=== PATIENT | female | born 1965 | race Hispanic/Latino ===

== ENCOUNTER 2018-09-28 03:30 | Observation (INO) | payer BC ==
[~2018-09-28] VITALS: Ht 160 cm; Wt 108.9 kg
[2018-09-28] VITALS (13 sets, daily range): BP systolic 116–146; BP diastolic 64–83
[2018-09-28] MEDS ORDERED: metformin (04:15)
[2018-09-28] MEDS ORDERED: ACETAMINOPHEN 325 MG TAB PO PRN (04:15)
[2018-09-28] MEDS ORDERED: singulair (04:15)
[2018-09-28] MEDS ORDERED: lipitor PO (04:15)
[2018-09-28] MEDS ORDERED: ASPI-1005 PO (04:15)
[2018-09-28] MEDS ORDERED: amlodipine PO (04:15)
[2018-09-28] MEDS ORDERED: MORPHINE SULFATE 2 MG/ML 1ML SYG IV PRN (04:15)
[2018-09-28] MEDS ORDERED: invokana PO (04:15)
[2018-09-28] MEDS ORDERED: ONDANSETRON HCL MDV 20ML 2 MG/ML VIAL IV PRN (04:15)
[2018-09-28] MEDS ORDERED: LORAZEPAM 2 MG/ML 1 ML VIAL IVP PRN (04:15)
[2018-09-28] MEDS ORDERED: benazepril PO (04:15)
[2018-09-28 05:16] LABS: BASOPHILS % (AUTO) 0.6 % (0.0-5.0); EOSINOPHILS % (AUTO) 2.3 % (0.0-8.0); HEMATOCRIT 39.7 % (36-48); LYMPHOCYTES % (AUTO) 28.6 % (21.0-51.0); MEAN CORPUSCULAR HEMOGLOBIN 24.9 pg (27.0-33.0); MEAN CORPUSCULAR HGB CONC 32.8 g/dL (32.0-36.0); MEAN CORPUSCULAR VOLUME 75.7 fL (79-99); MONOCYTES % (AUTO) 6.9 % (3.0-13.0); NEUTROPHILS % (AUTO) 61.6 % (40.0-77.0); PLATELET COUNT (AUTO) 304 K/uL (130-400); RED BLOOD CELL COUNT(AUTO) 5.24 MIL/uL (4.00-5.50); RED CELL DISTRIBUTION WIDTH 15.9 % (11.0-15.5); WHITE BLOOD COUNT (AUTO) 12.6 K/uL (4.8-10.8)
[2018-09-28 05:32] LABS: HEMOGLOBIN A1C 7.4 % (4.0-6.0)
[2018-09-28 05:34] LABS: INR 0.98 (0.85-1.15); PROTHROMBIN TIME 10.3 SEC (9.6-11.6)
[2018-09-28 05:39] LABS: ALBUMIN 3.1 g/dL (3.5-5.0); BILIRUBIN,TOTAL 0.3 mg/dL (0.2-1.0); CREATININE 0.9 mg/dL (0.5-1.5); CRP QUANTITATIVE 23.7 mg/L (0.00-9.0); MAGNESIUM 2.2 mg/dL (1.80-2.40); THYROID STIMULATING HORMONE 2.33 uIU/mL (0.36-3.74); TOTAL PROTEIN, SERUM 7.2 g/dL (6.0-8.3)
[2018-09-28 05:50] LABS: B-TYPE NATRIURETIC PEPTIDE 78 pg/mL (0-100)
[2018-09-28] MEDS: NITROGLYCERIN 1GM/1 INCH PACKET TD SCH ×2 (06:43→11:51)
[2018-09-28] MEDS: INSULIN HUMULIN R 100 UNIT/ML 3ML SQ SCH ×4 (07:20→20:39)
[2018-09-28 07:53] LABS: TROPONIN I 1.56 ng/mL (0.00-0.06)
[2018-09-28] MEDS ORDERED: ASPIRIN 325 MG TABLET PO SCH (09:00)
[2018-09-28] MEDS: FAMOTIDINE/PF 20 MG/2 ML VIAL IV SCH ×2 (09:08→20:25)
[2018-09-28] MEDS: ATORVASTATIN CALCIUM 20 MG TABLET PO SCH (09:08)
[2018-09-28] MEDS: METOPROLOL TARTRATE 25 MG TAB PO SCH ×2 (09:08→20:25)
[2018-09-28] MEDS: ENOXAPARIN SODIUM 120 MG/0.8ML SQ SCH ×2 (09:10→20:26)
[2018-09-28] MEDS ORDERED: BIVALIRUDIN 250 MG/VIAL IV ONE (12:36)
[2018-09-28] MEDS ORDERED: LIDOCAINE HCL-MPF 2% 5ML VIAL ONE (12:36)
[2018-09-28] MEDS ORDERED: IOHEXOL-350 50ML VIAL IV ONE (12:36)
[2018-09-28] MEDS ORDERED: NITROGLYCERIN 5 MG/ML 10 ML VIAL IV ONE (12:36)
[2018-09-28] MEDS ORDERED: IOHEXOL 350 MG/ML 100ML INFUS..BTL IV ONE (12:36)
[2018-09-28] MEDS ORDERED: TICAGRELOR 90 MG TABLET ONE (13:47)
[2018-09-28] MEDS ORDERED: TEMAZEPAM 30 MG CAP PO PRN (14:15)
[2018-09-28] MEDS ORDERED: ACETAMINOPHEN-CODEINE 300/30MG TAB PO PRN ×2 (14:15)
[2018-09-28] MEDS ORDERED: MORPHINE SULFATE 5 MG/ML VIAL IVP SCH ×2 (14:15)
[2018-09-28] MEDS ORDERED: HYDRALAZINE HCL 20 MG/ML VIAL IV PRN (14:15)
[2018-09-28] MEDS ORDERED: NITROGLYCERIN 0.4 MG SL TAB SL PRN (14:15)
[2018-09-28] MEDS ORDERED: ONDANSETRON HCL 4 MG/2 ML VIAL IVP PRN (14:15)
[2018-09-28] MEDS ORDERED: ONDANSETRON HCL 4 MG/2 ML VIAL IVP SCH (14:15)
[2018-09-28 15:20] LABS: TROPONIN I 1.44 ng/mL (0.00-0.06)
[2018-09-28] MEDS: LISINOPRIL 10 MG TABLET PO SCH (20:25)
[2018-09-28] MEDS: TICAGRELOR 90 MG TABLET PO SCH (20:25)
[2018-09-29] LABS: TROPONIN I 1.21 ng/mL (0.00-0.06)
[2018-09-29 04:09] VITALS: BP 119/72
[2018-09-29 04:21] LABS: HEMATOCRIT 42.5 % (36-48); MEAN CORPUSCULAR HGB CONC 32.7 g/dL (32.0-36.0); MEAN CORPUSCULAR VOLUME 76.2 fL (79-99); NUCLEATED RED BLOOD CELLS 0.1 % (0.0-0.19); PLATELET COUNT (AUTO) 339 K/uL (130-400); RED BLOOD CELL COUNT(AUTO) 5.58 MIL/uL (4.00-5.50); RED CELL DISTRIBUTION WIDTH 16.1 % (11.0-15.5); WHITE BLOOD COUNT (AUTO) 13.2 K/uL (4.8-10.8)
[2018-09-29 05:09] LABS: CREATININE 0.9 mg/dL (0.5-1.5); POTASSIUM 4.3 mmol/L (3.5-5.1)
[2018-09-29] MEDS: INSULIN HUMULIN R 100 UNIT/ML 3ML SQ SCH ×2 (06:23→11:30)
[2018-09-29 07:47] VITALS: BP 151/84
[2018-09-29] MEDS ORDERED: ASPIRIN 81MG TAB.CHEW PO SCH (09:00)
[2018-09-29] MEDS: FAMOTIDINE/PF 20 MG/2 ML VIAL IV SCH (09:01)
[2018-09-29] MEDS: TICAGRELOR 90 MG TABLET PO SCH (09:01)
[2018-09-29] MEDS: LISINOPRIL 10 MG TABLET PO SCH (09:02)
[2018-09-29] MEDS: METOPROLOL TARTRATE 25 MG TAB PO SCH (09:02)
[2018-09-29] MEDS: ENOXAPARIN SODIUM 120 MG/0.8ML SQ SCH (09:03)
[2018-09-29] MEDS: ATORVASTATIN CALCIUM 20 MG TABLET PO SCH (09:05)
[2018-09-29] MEDS ORDERED: PNEUMOCOCCAL VACCINE POLYVALENT 0.5 ML/VIAL [PPV] IM SCH (10:30)
[2018-09-29] MEDS ORDERED: ATOR20TA65 PO (10:58)
[2018-09-29] MEDS ORDERED: METO25 PO (10:58)
[2018-09-29] MEDS ORDERED: TICA90TA PO (10:58)
[2018-09-29] MEDS ORDERED: LISI10TA7 PO (10:58)
[2018-09-29 11:04] VITALS: BP 120/77
== END 2018-09-29 14:12 | disposition home or self-care (01) ==
LOC: 2AH 03:31
PROVIDERS: ADMIT Hospitalist; ATTEND Hospitalist
DX: I25.110 Atherosclerotic heart disease of native coronary artery with unstable angina pectoris (principal); E11.9 Type 2 diabetes mellitus without complications; E78.2 Mixed hyperlipidemia; I11.0 Hypertensive heart disease with heart failure; I50.33 Acute on chronic diastolic (congestive) heart failure; E66.01 Morbid (severe) obesity due to excess calories; I21.4 Non-ST elevation (NSTEMI) myocardial infarction; J45.909 Unspecified asthma, uncomplicated; K21.9 Gastro-esophageal reflux disease without esophagitis; Z82.49 Family history of ischemic heart disease and other diseases of the circulatory system; Z95.5 Presence of coronary angioplasty implant and graft; Z79.899 Other long term (current) drug therapy; Z23 Encounter for immunization
CPT/HCPCS: 36415 ×2; 71045; 80048; 80053; 80061 ×2; 82550 ×3; 82948 ×6; 83036; 83690; 83735; 83874 ×3; 83880; 84443; 84484 ×4; 85025; 85027; 85610; 85730; 86140; 90471; 90732; 93005 ×3; 93306; 93458; 96372 ×2; 96374; 96376; 99285; A4600; C1725; C1769; C1874; C1887; C1894 ×2; C9600; G0378 ×36; J0583; J1644; J1650 ×3; J2060; J3490 ×5; Q9965; Q9967 ×2

== ENCOUNTER → 2018-12-01 | Outpatient (CLI) | payer BC ==
[~2018-12-01] MED LIST: ASPI-1005 PO; ATOR20TA65 PO; LISI10TA7 PO; METO25 PO; TICA90TA PO; amlodipine PO; benazepril PO; invokana PO; metformin; singulair
== END | disposition home or self-care (01) ==
LOC: SHCH 09:33
PROVIDERS: ATTEND Internal Medicine Cardiovascular Disease
DX: I65.23 Occlusion and stenosis of bilateral carotid arteries (principal)
CPT/HCPCS: 93880

== ENCOUNTER → 2023-02-05 | Outpatient (CLI) | payer BC ==
[~2023-02-05] MED LIST changes: +LISI10TA24 PO; -LISI10TA7 PO
== END | disposition home or self-care (01) ==
LOC: SHCH 14:32
PROVIDERS: ATTEND Internal Medicine Cardiovascular Disease
DX: I11.9 Hypertensive heart disease without heart failure (principal); I20.9 Angina pectoris, unspecified; E78.5 Hyperlipidemia, unspecified
CPT/HCPCS: 93306

== ENCOUNTER 2023-05-23 18:23 | Inpatient (IN) | payer BC, OTHER ==
[~2023-05-23] VITALS: Ht 160 cm; Wt 113.4 kg
[2023-05-23] MEDS ORDERED: LEVOFLOXACIN 750 MG/D5W 150ML BAG IV ONE (19:00)
[2023-05-23] MEDS ORDERED: 0.9%NACL 1000ML 1,503 ML IV ONE (19:00)
[2023-05-23] MEDS ORDERED: ACETAMINOPHEN 500 MG TABLET PO ONE (19:30)
[2023-05-23 19:41] LABS: BASOPHILS % (AUTO) 0.1 % (0.0-5.0); HEMATOCRIT 40.8 % (36-48); LYMPHOCYTES % (AUTO) 5.6 % (21.0-51.0); MEAN CORPUSCULAR HEMOGLOBIN 25.3 pg (27.0-33.0); MEAN CORPUSCULAR HGB CONC 32.8 g/dL (32.0-36.0); MEAN CORPUSCULAR VOLUME 77.1 fL (79-99); MONOCYTES % (AUTO) 8.5 % (3.0-13.0); NEUTROPHILS % (AUTO) 85.3 % (40.0-77.0); PLATELET COUNT (AUTO) 352 K/uL (130-400); RED BLOOD CELL COUNT(AUTO) 5.29 MIL/uL (4.00-5.50); RED CELL DISTRIBUTION WIDTH 16.1 % (11.0-15.5); WHITE BLOOD COUNT (AUTO) 13.8 K/uL (4.8-10.8)
[2023-05-23 19:59] LABS: ALBUMIN 2.9 g/dL (3.5-5.0); POTASSIUM 3.9 mmol/L (3.5-5.1); TOTAL PROTEIN, SERUM 8.6 g/dL (6.0-8.3)
[2023-05-23 20:25] LABS: APPEARANCE,URINE CLOUDY (CLEAR); BILIRUBIN,URINE NEGATIVE (NEGATIVE); COLOR,URINE LIGHT-ORANGE (YELLOW); GLUCOSE, URINE (UA) >=1000 mg/dL (NEGATIVE); KETONES,URINE NEGATIVE (NEGATIVE); LEUKOCYTE ESTERASE ,URINE 500 Leu/uL (NEGATIVE); NITRATE,URINE NEGATIVE (NEGATIVE); OCCULT BLOOD,URINE SMALL (NEGATIVE); PROTEIN,URINE 30 mg/dL (NEGATIVE); UROBILINOGEN,URINE 0.2 mg/dL (0.2-1.0)
[2023-05-23 20:35] LABS: BACTERIA,URINE MANY /HPF (None Seen); MUCUS,URINE MANY LPF (None Seen); SQUAMOUS EPITHELIAL CELL,UR RARE /HPF (0-2)
[2023-05-23 20:54] LABS: INR 1.06 (0.85-1.15); PROTHROMBIN TIME 12.2 SEC (9.6-11.6)
[2023-05-23 20:56] LABS: PARTIAL THROMBOPLASTIN TIME 29.6 SEC (26.3-35.5)
[2023-05-23] MEDS ORDERED: HEPARIN 5,000 UNIT VIAL SQ PRN (21:00)
[2023-05-23] MEDS ORDERED: ONDANSETRON 4MG INJ IVP PRN (21:00)
[2023-05-23] MEDS ORDERED: ENOXAPARIN SODIUM 30 MG/0.3 ML SQ SCH (21:00)
[2023-05-23] MEDS: 0.9%NACL 1000ML 1,000 ML IV SCH (21:36)
[2023-05-23] MEDS: NOREPINEPHRIN 4MG/NS 250ML 250 ML IV PRN (21:37)
[2023-05-23] MEDS: HEPARIN 25,000 UNITS/250ML D5W 250 ML IV SCH (22:05)
[2023-05-23] MEDS: INSULIN HUMULIN R 100 UNIT/ML 3ML SQ SCH (22:11)
[2023-05-24] VITALS (9 sets, daily range): BP systolic 73–122; BP diastolic 42–76
[2023-05-24] MEDS: HEPARIN 25,000 UNITS/250ML D5W 250 ML IV SCH ×4 (02:49→19:47)
[2023-05-24] MEDS: NOREPINEPHRIN 4MG/NS 250ML 250 ML IV PRN ×4 (03:48→23:13)
[2023-05-24 04:59] LABS: BASOPHILS % (AUTO) 0.2 % (0.0-5.0); LYMPHOCYTES % (AUTO) 6.4 % (21.0-51.0); MEAN CORPUSCULAR HEMOGLOBIN 25.8 pg (27.0-33.0); MEAN CORPUSCULAR HGB CONC 32.2 g/dL (32.0-36.0); MEAN CORPUSCULAR VOLUME 80.2 fL (79-99); MONOCYTES % (AUTO) 8.2 % (3.0-13.0); NEUTROPHILS % (AUTO) 84.7 % (40.0-77.0); PLATELET COUNT (AUTO) 316 K/uL (130-400); RED BLOOD CELL COUNT(AUTO) 4.49 MIL/uL (4.00-5.50); RED CELL DISTRIBUTION WIDTH 16.3 % (11.0-15.5); WHITE BLOOD COUNT (AUTO) 16.9 K/uL (4.8-10.8)
[2023-05-24] MEDS: 0.9%NACL 1000ML 1,000 ML IV SCH ×3 (05:03→19:47)
[2023-05-24 05:12] LABS: INR 1.01 (0.85-1.15); PROTHROMBIN TIME 11.7 SEC (9.6-11.6)
[2023-05-24 05:17] LABS: ALBUMIN 2.2 g/dL (3.5-5.0); CREATININE 5.6 mg/dL (0.5-1.5); MAGNESIUM 2.1 mg/dL (1.80-2.40); PHOSPHORUS 5.4 mg/dL (2.5-4.9); POTASSIUM 3.7 mmol/L (3.5-5.1); TOTAL PROTEIN, SERUM 6.9 g/dL (6.0-8.3)
[2023-05-24 05:39] LABS: PARTIAL THROMBOPLASTIN TIME 89.6 SEC (26.3-35.5)
[2023-05-24] MEDS: INSULIN HUMULIN R 100 UNIT/ML 3ML SQ SCH ×4 (07:28→19:48)
[2023-05-24] MEDS ORDERED: PANTOPRAZOLE 40 MG/VIAL IVP SCH (09:00)
[2023-05-24] MEDS ORDERED: MAGNESIUM 2GM PREMIX 50ML 50 ML IV SCH ×2 (09:00→10:30)
[2023-05-24] MEDS ORDERED: MANNITOL 20% IV SCH ×2 (09:00→10:30)
[2023-05-24] MEDS ORDERED: 0.9%NACL 1000ML 1,000 ML IV SCH ×2 (09:00→10:30)
[2023-05-24 09:02] LABS: ABG BASE EXCESS -11.5 mmol/L (-2.0-3.0); ABG HCO3 13.4 mmol/L (21.0-28.0); ABG OXYGEN SATURATION 96.2 % (95.0-99.0); ABG PCO2 29 mmHg (32-45)
[2023-05-24] MEDS: ASPIRIN 81MG CHEW TAB PO SCH (09:11)
[2023-05-24] MEDS: INSULIN REGULAR, HUMAN 3ML 100 UNIT in 0.9%NACL 100ML 100 ML IV SCH ×2 (09:36)
[2023-05-24] MEDS ORDERED: D5W-1/2 NS/20MEQ KCL 1,000 ML IV SCH (10:30)
[2023-05-24] MEDS ORDERED: POTASSIUM CHLORIDE 10MEQ/100ML 100 ML IV PRN (10:30)
[2023-05-24] MEDS ORDERED: INSULIN REGULAR, HUMAN 3ML 100 UNIT in 0.9%NACL 100ML 100 ML IV SCH ×2 (10:30)
[2023-05-24] MEDS: MEROPENEM 1 GM VIAL IVPB SCH ×2 (10:43→22:50)
[2023-05-24 12:15] LABS: POTASSIUM 3.3 mmol/L (3.5-5.1)
[2023-05-24 12:17] LABS: INR 1.01 (0.85-1.15); PROTHROMBIN TIME 11.7 SEC (9.6-11.6)
[2023-05-24 12:19] LABS: PARTIAL THROMBOPLASTIN TIME 85.3 SEC (26.3-35.5)
[2023-05-24] MEDS: POTASSIUM CHLORIDE 10MEQ/100ML 100 ML IV PRN ×2 (12:55→14:58)
[2023-05-24] MEDS: D5W-1/2 NS/20MEQ KCL 1,000 ML IV SCH ×2 (13:47→19:53)
[2023-05-24] MEDS ORDERED: LACTATED RINGERS 1000ML 1,000 ML IV SCH (14:00)
[2023-05-24] MEDS ORDERED: ROSU40TA21 PO (16:03)
[2023-05-24] MEDS ORDERED: SEMA1PEN3 SQ (16:03)
[2023-05-24] MEDS ORDERED: DAPA10TA PO (16:03)
[2023-05-24] MEDS ORDERED: OXYB5TAB27 PO (16:03)
[2023-05-24] MEDS ORDERED: BENA40TA92 PO (16:03)
[2023-05-24] MEDS ORDERED: METF-446 PO (16:03)
[2023-05-24] MEDS ORDERED: GABA-529 PO (16:03)
[2023-05-24] MEDS ORDERED: PIOG30TA70 PO (16:03)
[2023-05-24] MEDS ORDERED: MONT-39 PO (16:03)
[2023-05-24] MEDS ORDERED: TOLT2TAB20 PO (16:03)
[2023-05-24] MEDS ORDERED: AMLO-257 PO (16:03)
[2023-05-24] MEDS ORDERED: CARV6.25 PO (16:03)
[2023-05-24 16:10] LABS: POTASSIUM 4.1 mmol/L (3.5-5.1)
[2023-05-24] MEDS: ACETAMINOPHEN 325 MG TAB PO PRN (19:53)
[2023-05-24] MEDS: PANTOPRAZOLE 40 MG/VIAL IVP SCH (20:24)
[2023-05-24 20:53] LABS: BASOPHILS % (AUTO) 0.3 % (0.0-5.0); EOSINOPHILS % (AUTO) 0.4 % (0.0-8.0); HEMATOCRIT 34.9 % (36-48); LYMPHOCYTES % (AUTO) 5.5 % (21.0-51.0); MEAN CORPUSCULAR HEMOGLOBIN 25.8 pg (27.0-33.0); MEAN CORPUSCULAR HGB CONC 31.2 g/dL (32.0-36.0); MEAN CORPUSCULAR VOLUME 82.5 fL (79-99); MONOCYTES % (AUTO) 9.1 % (3.0-13.0); NEUTROPHILS % (AUTO) 84.3 % (40.0-77.0); PLATELET COUNT (AUTO) 240 K/uL (130-400); RED BLOOD CELL COUNT(AUTO) 4.23 MIL/uL (4.00-5.50); RED CELL DISTRIBUTION WIDTH 16.7 % (11.0-15.5); WHITE BLOOD COUNT (AUTO) 15.6 K/uL (4.8-10.8)
[2023-05-24 21:43] LABS: POTASSIUM 3.9 mmol/L (3.5-5.1)
[2023-05-25] VITALS (59 sets, daily range): BP systolic 91–130; BP diastolic 35–70
[2023-05-25] MEDS: D5W-1/2 NS/20MEQ KCL 1,000 ML IV SCH (00:49)
[2023-05-25 01:04] LABS: CREATININE 6.2 mg/dL (0.5-1.5)
[2023-05-25] MEDS: HEPARIN 25,000 UNITS/250ML D5W 250 ML IV SCH (03:00)
[2023-05-25 04:43] LABS: POTASSIUM 3.8 mmol/L (3.5-5.1)
[2023-05-25] MEDS: 0.9%NACL 1000ML 1,000 ML IV SCH ×3 (05:00→21:00)
[2023-05-25] MEDS: NOREPINEPHRIN 4MG/NS 250ML 250 ML IV PRN (06:26)
[2023-05-25] MEDS: INSULIN HUMULIN R 100 UNIT/ML 3ML SQ SCH ×4 (07:30→21:00)
[2023-05-25] MEDS: INSULIN REGULAR, HUMAN 3ML 100 UNIT in 0.9%NACL 100ML 100 ML IV SCH ×2 (08:22)
[2023-05-25 08:26] LABS: CREATININE 6.3 mg/dL (0.5-1.5); POTASSIUM 3.9 mmol/L (3.5-5.1)
[2023-05-25] MEDS ORDERED: SODIUM BICARB 50MEQ 50ML VIAL IV ONE (09:00)
[2023-05-25] MEDS: SODIUM BICARB 150 MEQ in DEXTROSE 5%-WATER 1,000 ML IVP SCH ×2 (09:27→21:14)
[2023-05-25] MEDS: PANTOPRAZOLE 40 MG/VIAL IVP SCH ×2 (10:38→20:12)
[2023-05-25] MEDS: MEROPENEM 1 GM VIAL IVPB SCH ×2 (10:39→21:15)
[2023-05-25] MEDS: MIDODRINE HCL 5 MG TABLET PO SCH ×3 (10:39→20:12)
[2023-05-25] MEDS: ASPIRIN 81MG CHEW TAB PO SCH (10:39)
[2023-05-25 12:26] LABS: CREATININE 6.4 mg/dL (0.5-1.5); POTASSIUM 3.6 mmol/L (3.5-5.1)
[2023-05-25] MEDS: MORPHINE 4 MG SYG IVP PRN ×2 (15:32→22:18)
[2023-05-25 16:02] LABS: CREATININE 6.4 mg/dL (0.5-1.5); POTASSIUM 3.4 mmol/L (3.5-5.1)
[2023-05-25] MEDS ORDERED: 0.9% NACL 500ML IV.SOLN 500 ML IV SCH (17:30)
[2023-05-25] MEDS: POTASSIUM CHLORIDE 10MEQ/100ML 100 ML IV PRN ×2 (19:27→21:17)
[2023-05-25 20:40] LABS: HEMATOCRIT 30.3 % (36-48)
[2023-05-25 23:15] LABS: CREATININE 6.4 mg/dL (0.5-1.5); POTASSIUM 3.6 mmol/L (3.5-5.1)
[2023-05-26] VITALS (60 sets, daily range): BP systolic 80–161; BP diastolic 38–83
[2023-05-26] MEDS: HEPARIN 25,000 UNITS/250ML D5W 250 ML IV SCH (03:00)
[2023-05-26 04:26] LABS: BASOPHILS % (AUTO) 0.3 % (0.0-5.0); EOSINOPHILS % (AUTO) 0.6 % (0.0-8.0); HEMATOCRIT 28.7 % (36-48); LYMPHOCYTES % (AUTO) 8.5 % (21.0-51.0); MEAN CORPUSCULAR HEMOGLOBIN 25.1 pg (27.0-33.0); MEAN CORPUSCULAR HGB CONC 31.7 g/dL (32.0-36.0); MEAN CORPUSCULAR VOLUME 79.3 fL (79-99); MONOCYTES % (AUTO) 8.5 % (3.0-13.0); NEUTROPHILS % (AUTO) 80.5 % (40.0-77.0); PLATELET COUNT (AUTO) 230 K/uL (130-400); RED BLOOD CELL COUNT(AUTO) 3.62 MIL/uL (4.00-5.50); RED CELL DISTRIBUTION WIDTH 16.5 % (11.0-15.5)
[2023-05-26] MEDS: 0.9%NACL 1000ML 1,000 ML IV SCH (05:00)
[2023-05-26] MEDS: INSULIN HUMULIN R 100 UNIT/ML 3ML SQ SCH ×4 (07:30→22:29)
[2023-05-26] MEDS: ASPIRIN 81MG CHEW TAB PO SCH (08:11)
[2023-05-26] MEDS: PANTOPRAZOLE 40 MG/VIAL IVP SCH ×2 (08:12→22:26)
[2023-05-26] MEDS: MIDODRINE HCL 5 MG TABLET PO SCH ×3 (08:12→22:30)
[2023-05-26] MEDS: SODIUM BICARB 150 MEQ in DEXTROSE 5%-WATER 1,000 ML IVP SCH ×2 (08:18→19:30)
[2023-05-26] MEDS: INSULIN GLARGINE 100 UNITS/ML 10 ML VIAL SQ SCH ×2 (08:19→22:28)
[2023-05-26] MEDS: MEROPENEM 1 GM VIAL IVPB SCH ×2 (09:52→22:26)
[2023-05-26] MEDS: HYDROMORPHONE 0.5 MG SYG (0.5MG/0.5ML) IVP PRN (09:53)
[2023-05-26] MEDS: HEPARIN 5,000 UNIT VIAL IV SCH (20:55)
[2023-05-26] MEDS: ACETAMINOPHEN 325 MG TAB PO PRN (23:11)
[2023-05-26 23:24] LABS: CREATININE 5.4 mg/dL (0.5-1.5); POTASSIUM 3.2 mmol/L (3.5-5.1)
[2023-05-27] VITALS (40 sets, daily range): BP systolic 89–159; BP diastolic 43–78
[2023-05-27 02:44] LABS: HEPATITIS B SURFACE ANTIGEN Non-Reactive (Nonreactive)
[2023-05-27 04:33] LABS: BASOPHILS % (AUTO) 0.3 % (0.0-5.0); EOSINOPHILS % (AUTO) 0.9 % (0.0-8.0); LYMPHOCYTES % (AUTO) 10.9 % (21.0-51.0); MEAN CORPUSCULAR HEMOGLOBIN 25.4 pg (27.0-33.0); MEAN CORPUSCULAR HGB CONC 32.7 g/dL (32.0-36.0); MEAN CORPUSCULAR VOLUME 77.7 fL (79-99); MONOCYTES % (AUTO) 8.9 % (3.0-13.0); NEUTROPHILS % (AUTO) 76.5 % (40.0-77.0); PLATELET COUNT (AUTO) 293 K/uL (130-400); RED BLOOD CELL COUNT(AUTO) 3.86 MIL/uL (4.00-5.50); RED CELL DISTRIBUTION WIDTH 16.2 % (11.0-15.5); WHITE BLOOD COUNT (AUTO) 12.8 K/uL (4.8-10.8)
[2023-05-27 05:20] LABS: ALBUMIN 1.5 g/dL (3.5-5.0); CREATININE 5.8 mg/dL (0.5-1.5); TOTAL PROTEIN, SERUM 5.7 g/dL (6.0-8.3)
[2023-05-27] MEDS: SODIUM BICARB 150 MEQ in DEXTROSE 5%-WATER 1,000 ML IVP SCH (06:28)
[2023-05-27] MEDS: INSULIN HUMULIN R 100 UNIT/ML 3ML SQ SCH ×3 (06:30→20:48)
[2023-05-27] MEDS: INSULIN GLARGINE 100 UNITS/ML 10 ML VIAL SQ SCH ×2 (06:35→20:47)
[2023-05-27] MEDS: PANTOPRAZOLE 40 MG/VIAL IVP SCH ×2 (08:42→19:46)
[2023-05-27] MEDS: ASPIRIN 81MG CHEW TAB PO SCH (08:42)
[2023-05-27] MEDS: MIDODRINE HCL 5 MG TABLET PO SCH ×3 (08:43→19:46)
[2023-05-27] MEDS: MEROPENEM 1 GM VIAL IVPB SCH ×2 (09:07→19:46)
[2023-05-27] MEDS: ACETAMINOPHEN 325 MG TAB PO PRN (14:49)
[2023-05-27] MEDS: HEPARIN 5,000 UNIT VIAL IV SCH (17:30)
[2023-05-27] MEDS: METOPROLOL SUCCINATE 25 MG TAB.SR.24H PO SCH (19:45)
[2023-05-28] VITALS (21 sets, daily range): BP systolic 99–143; BP diastolic 51–74
[2023-05-28] MEDS: HYDROMORPHONE 0.5 MG SYG (0.5MG/0.5ML) IVP PRN (02:24)
[2023-05-28 03:42] LABS: BASOPHILS % (AUTO) 0.4 % (0.0-5.0); EOSINOPHILS % (AUTO) 1.6 % (0.0-8.0); HEMATOCRIT 30.2 % (36-48); LYMPHOCYTES % (AUTO) 12.8 % (21.0-51.0); MEAN CORPUSCULAR HGB CONC 31.8 g/dL (32.0-36.0); MEAN CORPUSCULAR VOLUME 78.6 fL (79-99); MONOCYTES % (AUTO) 10.2 % (3.0-13.0); NEUTROPHILS % (AUTO) 71.2 % (40.0-77.0); PLATELET COUNT (AUTO) 377 K/uL (130-400); RED BLOOD CELL COUNT(AUTO) 3.84 MIL/uL (4.00-5.50); RED CELL DISTRIBUTION WIDTH 15.9 % (11.0-15.5); WHITE BLOOD COUNT (AUTO) 18.2 K/uL (4.8-10.8)
[2023-05-28] MEDS: INSULIN HUMULIN R 100 UNIT/ML 3ML SQ SCH ×4 (06:16→21:51)
[2023-05-28] MEDS: INSULIN GLARGINE 100 UNITS/ML 10 ML VIAL SQ SCH ×2 (07:30→21:50)
[2023-05-28 08:00] LABS: CREATININE 5.1 mg/dL (0.5-1.5); POTASSIUM 3.4 mmol/L (3.5-5.1)
[2023-05-28] MEDS: METOPROLOL SUCCINATE 25 MG TAB.SR.24H PO SCH ×2 (09:00→21:46)
[2023-05-28] MEDS: MIDODRINE HCL 5 MG TABLET PO SCH ×3 (09:00→21:46)
[2023-05-28] MEDS: ASPIRIN 81MG CHEW TAB PO SCH (09:00)
[2023-05-28] MEDS: HEPARIN 5,000 UNIT VIAL IJ SCH (13:01)
[2023-05-28] MEDS: PANTOPRAZOLE 40 MG/VIAL IVP SCH ×2 (14:00→21:47)
[2023-05-28] MEDS: MEROPENEM 1 GM VIAL IVPB SCH ×2 (14:01→21:49)
[2023-05-28] MEDS: HEPARIN 5,000 UNIT VIAL IV SCH (17:30)
[2023-05-28] MEDS: BALSAM PERU/CASTOR OIL 60 GM TUBE TP SCH (21:47)
[2023-05-28] MEDS: ACETAMINOPHEN 325 MG TAB PO PRN (21:47)
[2023-05-29 00:31] VITALS: BP 115/52
[2023-05-29 04:27] VITALS: BP 138/71
[2023-05-29] MEDS: INSULIN HUMULIN R 100 UNIT/ML 3ML SQ SCH ×4 (06:55→21:46)
[2023-05-29] MEDS: INSULIN GLARGINE 100 UNITS/ML 10 ML VIAL SQ SCH ×2 (07:30→21:59)
[2023-05-29 08:03] VITALS: BP 136/65
[2023-05-29 08:57] LABS: BASOPHILS % (AUTO) 0.5 % (0.0-5.0); LYMPHOCYTES % (AUTO) 13.4 % (21.0-51.0); MEAN CORPUSCULAR HEMOGLOBIN 25.3 pg (27.0-33.0); MEAN CORPUSCULAR HGB CONC 31.5 g/dL (32.0-36.0); MEAN CORPUSCULAR VOLUME 80.3 fL (79-99); MONOCYTES % (AUTO) 10.9 % (3.0-13.0); NEUTROPHILS % (AUTO) 68.3 % (40.0-77.0); PLATELET COUNT (AUTO) 375 K/uL (130-400); RED BLOOD CELL COUNT(AUTO) 4.11 MIL/uL (4.00-5.50); RED CELL DISTRIBUTION WIDTH 15.8 % (11.0-15.5); WHITE BLOOD COUNT (AUTO) 15.4 K/uL (4.8-10.8)
[2023-05-29 11:53] VITALS: BP 120/64
[2023-05-29] MEDS: MEROPENEM 1 GM VIAL IVPB SCH ×2 (12:19→21:40)
[2023-05-29] MEDS: MIDODRINE HCL 5 MG TABLET PO SCH ×3 (12:33→21:00)
[2023-05-29] MEDS: METOPROLOL SUCCINATE 25 MG TAB.SR.24H PO SCH ×2 (12:34→21:44)
[2023-05-29] MEDS: PANTOPRAZOLE 40 MG/VIAL IVP SCH ×2 (12:34→21:41)
[2023-05-29] MEDS: BALSAM PERU/CASTOR OIL 60 GM TUBE TP SCH ×2 (12:34→21:40)
[2023-05-29] MEDS: ASPIRIN 81MG CHEW TAB PO SCH (12:34)
[2023-05-29 16:05] LABS: % IRON SATURATION 9.7 % (22-44)
[2023-05-29 16:06] LABS: ALBUMIN 1.9 g/dL (3.5-5.0)
[2023-05-29] MEDS: HEPARIN 5,000 UNIT VIAL IV SCH (17:30)
[2023-05-29 19:24] VITALS: BP 177/80
[2023-05-29] MEDS: ACETAMINOPHEN 325 MG TAB PO PRN (22:24)
[2023-05-29 23:04] VITALS: BP 138/70
[2023-05-30] VITALS (21 sets, daily range): BP systolic 100–149; BP diastolic 50–74
[2023-05-30 03:47] LABS: HEMATOCRIT 32.7 % (36-48); MEAN CORPUSCULAR HEMOGLOBIN 24.7 pg (27.0-33.0); MEAN CORPUSCULAR HGB CONC 30.9 g/dL (32.0-36.0); RED BLOOD CELL COUNT(AUTO) 4.09 MIL/uL (4.00-5.50); RED CELL DISTRIBUTION WIDTH 15.7 % (11.0-15.5)
[2023-05-30 04:00] LABS: CREATININE 5.5 mg/dL (0.5-1.5); MAGNESIUM 1.9 mg/dL (1.80-2.40); POTASSIUM 3.7 mmol/L (3.5-5.1)
[2023-05-30] MEDS: INSULIN HUMULIN R 100 UNIT/ML 3ML SQ SCH ×4 (06:35→21:00)
[2023-05-30] MEDS: METOPROLOL SUCCINATE 25 MG TAB.SR.24H PO SCH ×2 (09:00→21:29)
[2023-05-30] MEDS: MIDODRINE HCL 5 MG TABLET PO SCH ×3 (09:00→21:00)
[2023-05-30] MEDS: ASPIRIN 81MG CHEW TAB PO SCH (09:08)
[2023-05-30] MEDS: PANTOPRAZOLE 40 MG/VIAL IVP SCH ×2 (09:09→21:30)
[2023-05-30] MEDS: ACETAMINOPHEN 325 MG TAB PO PRN (09:09)
[2023-05-30] MEDS: INSULIN GLARGINE 100 UNITS/ML 10 ML VIAL SQ SCH ×2 (09:17→21:31)
[2023-05-30] MEDS: HEPARIN 5,000 UNIT VIAL IV SCH (12:39)
[2023-05-30] MEDS: BALSAM PERU/CASTOR OIL 60 GM TUBE TP SCH ×2 (14:01→21:31)
[2023-05-30] MEDS: MEROPENEM 1 GM VIAL IVPB SCH ×2 (14:01→21:30)
[2023-05-30] MEDS: HYDROMORPHONE 0.5 MG SYG (0.5MG/0.5ML) IVP PRN (21:36)
[2023-05-31] MEDS: ACETAMINOPHEN 325 MG TAB PO PRN ×3 (00:02→21:32)
[2023-05-31 00:21] VITALS: BP 128/77
[2023-05-31] MEDS ORDERED: AMIODARONE 900MG VIAL 360 MG in DEXTROSE 5%-WATER 200 ML IV SCH (00:30)
[2023-05-31] MEDS ORDERED: AMIODARONE 150MG VIAL 150 MG in DEXTROSE 5%-WATER 100 ML IV SCH (00:30)
[2023-05-31 04:01] VITALS: BP 134/69
[2023-05-31 04:07] LABS: BASOPHILS % (AUTO) 0.4 % (0.0-5.0); EOSINOPHILS % (AUTO) 2.2 % (0.0-8.0); LYMPHOCYTES % (AUTO) 11.2 % (21.0-51.0); MEAN CORPUSCULAR HEMOGLOBIN 25.5 pg (27.0-33.0); MEAN CORPUSCULAR HGB CONC 31.8 g/dL (32.0-36.0); MEAN CORPUSCULAR VOLUME 80.1 fL (79-99); MONOCYTES % (AUTO) 10.9 % (3.0-13.0); NEUTROPHILS % (AUTO) 71.1 % (40.0-77.0); PLATELET COUNT (AUTO) 322 K/uL (130-400); RED BLOOD CELL COUNT(AUTO) 4.12 MIL/uL (4.00-5.50); RED CELL DISTRIBUTION WIDTH 15.5 % (11.0-15.5); WHITE BLOOD COUNT (AUTO) 15.3 K/uL (4.8-10.8)
[2023-05-31 04:26] LABS: ALBUMIN 1.7 g/dL (3.5-5.0); CREATININE 4.9 mg/dL (0.5-1.5); POTASSIUM 3.8 mmol/L (3.5-5.1); TOTAL PROTEIN, SERUM 6.5 g/dL (6.0-8.3)
[2023-05-31] MEDS: INSULIN GLARGINE 100 UNITS/ML 10 ML VIAL SQ SCH ×2 (06:17→20:29)
[2023-05-31] MEDS: INSULIN HUMULIN R 100 UNIT/ML 3ML SQ SCH ×4 (06:18→20:29)
[2023-05-31] MEDS ORDERED: AMIODARONE 900MG VIAL 540 MG in DEXTROSE 5%-WATER 300 ML IV SCH (06:30)
[2023-05-31 07:18] VITALS: BP 129/65
[2023-05-31] MEDS: MIDODRINE HCL 5 MG TABLET PO SCH ×3 (09:00→21:00)
[2023-05-31 11:11] VITALS: BP 134/63
[2023-05-31] MEDS: ASPIRIN 81MG CHEW TAB PO SCH (11:31)
[2023-05-31] MEDS: MEROPENEM 1 GM VIAL IVPB SCH ×2 (11:31→21:30)
[2023-05-31] MEDS: PANTOPRAZOLE 40 MG/VIAL IVP SCH ×2 (11:31→21:47)
[2023-05-31] MEDS: METOPROLOL SUCCINATE 25 MG TAB.SR.24H PO SCH ×2 (11:31→21:31)
[2023-05-31 16:52] VITALS: BP 136/75
[2023-05-31] MEDS: HEPARIN 5,000 UNIT VIAL IV SCH (17:30)
[2023-05-31 20:11] VITALS: BP 148/81
[2023-05-31] MEDS: BALSAM PERU/CASTOR OIL 60 GM TUBE TP SCH (21:30)
[2023-06-01] VITALS (7 sets, daily range): BP systolic 148–176; BP diastolic 68–81
[2023-06-01 04:09] LABS: HEMATOCRIT 31.4 % (36-48); MEAN CORPUSCULAR HGB CONC 31.5 g/dL (32.0-36.0); MEAN CORPUSCULAR VOLUME 79.3 fL (79-99); RED BLOOD CELL COUNT(AUTO) 3.96 MIL/uL (4.00-5.50); RED CELL DISTRIBUTION WIDTH 15.4 % (11.0-15.5); WHITE BLOOD COUNT (AUTO) 13.4 K/uL (4.8-10.8)
[2023-06-01 04:28] LABS: ALBUMIN 1.7 g/dL (3.5-5.0); BILIRUBIN,DIRECT 0.1 mg/dL (0.0-0.3); CREATININE 5.6 mg/dL (0.5-1.5); POTASSIUM 3.9 mmol/L (3.5-5.1); TOTAL PROTEIN, SERUM 6.4 g/dL (6.0-8.3)
[2023-06-01] MEDS: INSULIN HUMULIN R 100 UNIT/ML 3ML SQ SCH ×4 (06:32→19:40)
[2023-06-01] MEDS: INSULIN GLARGINE 100 UNITS/ML 10 ML VIAL SQ SCH ×2 (07:30→20:18)
[2023-06-01] MEDS: MIDODRINE HCL 5 MG TABLET PO SCH (09:00)
[2023-06-01] MEDS: PANTOPRAZOLE 40 MG/VIAL IVP SCH ×2 (09:49→20:16)
[2023-06-01] MEDS: ASPIRIN 81MG CHEW TAB PO SCH ×2 (09:50→15:54)
[2023-06-01] MEDS: METOPROLOL SUCCINATE 25 MG TAB.SR.24H PO SCH ×2 (09:50→20:17)
[2023-06-01] MEDS: ACETAMINOPHEN 325 MG TAB PO PRN ×3 (09:50→22:48)
[2023-06-01] MEDS: MEROPENEM 1 GM VIAL IVPB SCH ×2 (10:00→22:47)
[2023-06-01] MEDS: BALSAM PERU/CASTOR OIL 60 GM TUBE TP SCH ×2 (10:19→20:18)
[2023-06-01] MEDS: HEPARIN 5,000 UNIT VIAL IV SCH (16:57)
[2023-06-01] MEDS: NS IV SCH (23:05)
[2023-06-01] MEDS: FLUCONAZOLE IV SCH (23:05)
[2023-06-02] VITALS (25 sets, daily range): BP systolic 96–156; BP diastolic 53–85
[2023-06-02 04:38] LABS: BASOPHILS % (AUTO) 0.4 % (0.0-5.0); EOSINOPHILS % (AUTO) 3.2 % (0.0-8.0); HEMATOCRIT 31.8 % (36-48); LYMPHOCYTES % (AUTO) 9.3 % (21.0-51.0); MEAN CORPUSCULAR HEMOGLOBIN 25.3 pg (27.0-33.0); MEAN CORPUSCULAR HGB CONC 31.1 g/dL (32.0-36.0); MEAN CORPUSCULAR VOLUME 81.3 fL (79-99); MONOCYTES % (AUTO) 9.1 % (3.0-13.0); NEUTROPHILS % (AUTO) 75.2 % (40.0-77.0); PLATELET COUNT (AUTO) 326 K/uL (130-400); RED BLOOD CELL COUNT(AUTO) 3.91 MIL/uL (4.00-5.50); RED CELL DISTRIBUTION WIDTH 15.4 % (11.0-15.5); WHITE BLOOD COUNT (AUTO) 14.2 K/uL (4.8-10.8)
[2023-06-02 04:49] LABS: INR 0.97 (0.85-1.15); PROTHROMBIN TIME 11.3 SEC (9.6-11.6)
[2023-06-02 05:05] LABS: ALBUMIN 1.8 g/dL (3.5-5.0); BILIRUBIN,DIRECT 0.1 mg/dL (0.0-0.3); CREATININE 5.8 mg/dL (0.5-1.5); MAGNESIUM 1.9 mg/dL (1.80-2.40); POTASSIUM 4.2 mmol/L (3.5-5.1); TOTAL PROTEIN, SERUM 6.6 g/dL (6.0-8.3)
[2023-06-02] MEDS: INSULIN HUMULIN R 100 UNIT/ML 3ML SQ SCH ×4 (06:15→20:26)
[2023-06-02] MEDS: INSULIN GLARGINE 100 UNITS/ML 10 ML VIAL SQ SCH ×2 (07:30→20:27)
[2023-06-02] MEDS: ASPIRIN 81MG CHEW TAB PO SCH (08:37)
[2023-06-02] MEDS: METOPROLOL SUCCINATE 25 MG TAB.SR.24H PO SCH ×2 (08:37→20:34)
[2023-06-02] MEDS: PANTOPRAZOLE 40 MG/VIAL IVP SCH ×2 (08:38→20:34)
[2023-06-02] MEDS: BALSAM PERU/CASTOR OIL 60 GM TUBE TP SCH ×2 (08:40→20:38)
[2023-06-02] MEDS: MEROPENEM 1 GM VIAL IVPB SCH ×2 (10:22→22:19)
[2023-06-02] MEDS ORDERED: INDOCYANINE GREEN 25 MG VIAL IJ ONE (12:50)
[2023-06-02] MEDS ORDERED: BUPIVACAINE/PF 0.5% 10ML VIAL ONE (13:12)
[2023-06-02] MEDS ORDERED: SUCCINYLCHOLINE 200MG/10ML SYR ONE (13:42)
[2023-06-02] MEDS ORDERED: LIDOCAINE PF 100MG/5ML (2%) SYRINGE 5ML ONE (13:42)
[2023-06-02] MEDS ORDERED: DEXAMETHASONE SOD PHOSPHATE 10MG/ML 1ML VIAL ONE (13:42)
[2023-06-02] MEDS ORDERED: NEOSTIGMINE 5MG/5ML SYR IV ONE (13:43)
[2023-06-02] MEDS ORDERED: ONDANSETRON 4MG INJ ONE (13:43)
[2023-06-02] MEDS ORDERED: GLYCOPYRROLATE 1 MG/5 ML SYRINGE ONE (13:43)
[2023-06-02] MEDS ORDERED: MIDAZOLAM HCL 1 MG/ML 2ML VIAL ONE (13:43)
[2023-06-02] MEDS ORDERED: PROPOFOL 10 MG/ML 20ML VIAL IV ONE (13:43)
[2023-06-02] MEDS ORDERED: ROCURONIUM 10MG/1ML SYR 10 MG/ML ML ONE ×2 (13:43→14:25)
[2023-06-02] MEDS ORDERED: FENTANYL CITRATE PF 50 MCG/1 ML 5ML AMP IV ONE (13:44)
[2023-06-02] MEDS ORDERED: PHENYLEPHRINE HCL 10 MG/ML 1ML VIAL IV ONE (14:01)
[2023-06-02] MEDS ORDERED: SUGAMMADEX SODIUM 200 MG/2 ML VIAL IV ONE (15:32)
[2023-06-02] MEDS ORDERED: KETOROLAC 30MG VIAL (30MG/ML) ONE (15:32)
[2023-06-02] MEDS ORDERED: MORPHINE 2 MG SYG ONE (16:10)
[2023-06-02] MEDS: HEPARIN 5,000 UNIT VIAL IV SCH (17:30)
[2023-06-02] MEDS: ACETAMINOPHEN 325 MG TAB PO PRN (20:34)
[2023-06-02] MEDS: FLUCONAZOLE IV SCH (23:51)
[2023-06-02] MEDS: NS IV SCH (23:51)
[2023-06-03] VITALS (23 sets, daily range): BP systolic 81–141; BP diastolic 51–73
[2023-06-03] MEDS: MORPHINE 4 MG SYG IVP PRN ×2 (03:18→18:12)
[2023-06-03 03:47] LABS: MEAN CORPUSCULAR HEMOGLOBIN 25.1 pg (27.0-33.0); MEAN CORPUSCULAR HGB CONC 30.9 g/dL (32.0-36.0); MEAN CORPUSCULAR VOLUME 81.1 fL (79-99); PLATELET COUNT (AUTO) 316 K/uL (130-400); RED BLOOD CELL COUNT(AUTO) 4.19 MIL/uL (4.00-5.50); RED CELL DISTRIBUTION WIDTH 15.5 % (11.0-15.5); WHITE BLOOD COUNT (AUTO) 15.8 K/uL (4.8-10.8)
[2023-06-03 04:09] LABS: ALBUMIN 1.9 g/dL (3.5-5.0); BILIRUBIN,DIRECT 0.2 mg/dL (0.0-0.3); CREATININE 5.6 mg/dL (0.5-1.5); POTASSIUM 5.9 mmol/L (3.5-5.1); TOTAL PROTEIN, SERUM 6.7 g/dL (6.0-8.3)
[2023-06-03] MEDS: INSULIN HUMULIN R 100 UNIT/ML 3ML SQ SCH ×5 (06:51→21:00)
[2023-06-03] MEDS: INSULIN GLARGINE 100 UNITS/ML 10 ML VIAL SQ SCH ×3 (06:52→21:00)
[2023-06-03] MEDS: PANTOPRAZOLE 40 MG/VIAL IVP SCH ×2 (09:09→21:51)
[2023-06-03] MEDS: BALSAM PERU/CASTOR OIL 60 GM TUBE TP SCH ×2 (09:10→21:53)
[2023-06-03] MEDS: MEROPENEM 1 GM VIAL IVPB SCH ×2 (09:11→21:51)
[2023-06-03] MEDS: METOPROLOL SUCCINATE 25 MG TAB.SR.24H PO SCH ×2 (09:11→21:52)
[2023-06-03] MEDS: ACETAMINOPHEN 325 MG TAB PO PRN ×2 (09:18→22:03)
[2023-06-03] MEDS ORDERED: POLYETHYLENE GLYCOL 3350 17 GM POWD.PACK PO PRN (11:00)
[2023-06-03] MEDS: HEPARIN 5,000 UNIT VIAL IJ SCH (13:11)
[2023-06-03] MEDS: HEPARIN 5,000 UNIT VIAL SQ SCH (18:11)
[2023-06-04] VITALS (21 sets, daily range): BP systolic 98–127; BP diastolic 52–75
[2023-06-04] MEDS: FLUCONAZOLE IV SCH ×2 (00:19→23:38)
[2023-06-04] MEDS: NS IV SCH ×2 (00:19→23:38)
[2023-06-04] MEDS: MORPHINE 4 MG SYG IVP PRN (01:27)
[2023-06-04] MEDS: ACETAMINOPHEN 325 MG TAB PO PRN (03:55)
[2023-06-04 03:57] LABS: MEAN CORPUSCULAR HEMOGLOBIN 25.4 pg (27.0-33.0); MEAN CORPUSCULAR HGB CONC 31.4 g/dL (32.0-36.0); MEAN CORPUSCULAR VOLUME 80.7 fL (79-99); RED BLOOD CELL COUNT(AUTO) 3.47 MIL/uL (4.00-5.50); RED CELL DISTRIBUTION WIDTH 15.4 % (11.0-15.5); WHITE BLOOD COUNT (AUTO) 16.4 K/uL (4.8-10.8)
[2023-06-04 04:16] LABS: ALBUMIN 1.7 g/dL (3.5-5.0); CREATININE 3.8 mg/dL (0.5-1.5); MAGNESIUM 1.9 mg/dL (1.80-2.40); POTASSIUM 3.9 mmol/L (3.5-5.1); TOTAL PROTEIN, SERUM 6.4 g/dL (6.0-8.3)
[2023-06-04] MEDS: HEPARIN 5,000 UNIT VIAL SQ SCH (04:30)
[2023-06-04] MEDS ORDERED: IOHEXOL-350 50ML VIAL IV ONE (06:49)
[2023-06-04] MEDS ORDERED: INDOMETHACIN 100 MG SUPP.RECT RC ONE (07:00)
[2023-06-04] MEDS ORDERED: KETAMINE 50MG/ML SYRINGE 50 MG/ML DISP.SYRIN ONE (07:03)
[2023-06-04] MEDS ORDERED: PHENYLEPHRINE HCL 10 MG/ML 1ML VIAL IV ONE (07:04)
[2023-06-04] MEDS ORDERED: SUCCINYLCHOLINE CHLORIDE 20 MG/ML 10 ML VIAL ONE (07:23)
[2023-06-04] MEDS ORDERED: PROPOFOL 10 MG/ML 20ML VIAL IV ONE (07:23)
[2023-06-04] MEDS ORDERED: MIDAZOLAM HCL 1 MG/ML 2ML VIAL ONE (07:25)
[2023-06-04] MEDS: INSULIN HUMULIN R 100 UNIT/ML 3ML SQ SCH ×4 (07:30→21:00)
[2023-06-04] MEDS: INSULIN GLARGINE 100 UNITS/ML 10 ML VIAL SQ SCH ×2 (07:30→22:09)
[2023-06-04] MEDS ORDERED: GLUCAGON 1MG KIT 1 MG ML ONE (07:43)
[2023-06-04] MEDS ORDERED: EPHEDRINE SULFATE 50 MG/ML AMPULE ONE (07:55)
[2023-06-04] MEDS: METOPROLOL SUCCINATE 25 MG TAB.SR.24H PO SCH ×2 (09:00→21:28)
[2023-06-04] MEDS: BALSAM PERU/CASTOR OIL 60 GM TUBE TP SCH ×2 (09:34→21:00)
[2023-06-04] MEDS: PANTOPRAZOLE 40 MG/VIAL IVP SCH ×2 (09:35→21:28)
[2023-06-04] MEDS ORDERED: COMPOUND IV MISC 1 EACH IVSOLN MISC PRN (13:00)
[2023-06-04] MEDS: MEROPENEM 500 MG/100ML CRCL 10-25 IV SCH ×2 (14:16)
[2023-06-04] MEDS ORDERED: HEPARIN 5,000 UNIT VIAL IV SCH (17:00)
[2023-06-05] MEDS: MEROPENEM 500 MG/100ML CRCL 10-25 IV SCH ×6 (02:08→23:47)
[2023-06-05 04:30] VITALS: BP 104/53
[2023-06-05 07:09] VITALS: BP 104/59
[2023-06-05] MEDS: INSULIN HUMULIN R 100 UNIT/ML 3ML SQ SCH ×3 (07:30→21:00)
[2023-06-05] MEDS: INSULIN GLARGINE 100 UNITS/ML 10 ML VIAL SQ SCH ×2 (08:05→21:21)
[2023-06-05] MEDS: PANTOPRAZOLE 40 MG/VIAL IVP SCH ×2 (08:48→20:29)
[2023-06-05] MEDS: METOPROLOL SUCCINATE 25 MG TAB.SR.24H PO SCH ×2 (08:49→20:29)
[2023-06-05] MEDS: BALSAM PERU/CASTOR OIL 60 GM TUBE TP SCH ×2 (08:51→21:23)
[2023-06-05 12:31] VITALS: BP 104/63
[2023-06-05 14:28] LABS: BASOPHILS % (AUTO) 0.4 % (0.0-5.0); EOSINOPHILS % (AUTO) 2.3 % (0.0-8.0); HEMATOCRIT 26.4 % (36-48); MEAN CORPUSCULAR HEMOGLOBIN 25.2 pg (27.0-33.0); MEAN CORPUSCULAR HGB CONC 30.3 g/dL (32.0-36.0); MEAN CORPUSCULAR VOLUME 83.3 fL (79-99); NEUTROPHILS % (AUTO) 81.3 % (40.0-77.0); PLATELET COUNT (AUTO) 306 K/uL (130-400); RED BLOOD CELL COUNT(AUTO) 3.17 MIL/uL (4.00-5.50); RED CELL DISTRIBUTION WIDTH 15.3 % (11.0-15.5); WHITE BLOOD COUNT (AUTO) 14.7 K/uL (4.8-10.8)
[2023-06-05 14:47] LABS: ALBUMIN 1.8 g/dL (3.5-5.0); CREATININE 2.8 mg/dL (0.5-1.5); POTASSIUM 3.9 mmol/L (3.5-5.1); TOTAL PROTEIN, SERUM 7.1 g/dL (6.0-8.3)
[2023-06-05 16:15] VITALS: BP 123/68
[2023-06-05 19:44] VITALS: BP 121/65
[2023-06-05] MEDS: FLUCONAZOLE IV SCH (22:36)
[2023-06-05] MEDS: NS IV SCH (22:36)
[2023-06-05 23:25] VITALS: BP 122/63
[2023-06-06] VITALS (21 sets, daily range): BP systolic 120–149; BP diastolic 61–81
[2023-06-06] MEDS: INSULIN HUMULIN R 100 UNIT/ML 3ML SQ SCH ×4 (06:19→20:39)
[2023-06-06 06:32] LABS: HEMATOCRIT 26.3 % (36-48); MEAN CORPUSCULAR HEMOGLOBIN 25.9 pg (27.0-33.0); MEAN CORPUSCULAR HGB CONC 31.2 g/dL (32.0-36.0); RED BLOOD CELL COUNT(AUTO) 3.17 MIL/uL (4.00-5.50); RED CELL DISTRIBUTION WIDTH 15.2 % (11.0-15.5); WHITE BLOOD COUNT (AUTO) 14.3 K/uL (4.8-10.8)
[2023-06-06 06:48] LABS: CREATININE 2.5 mg/dL (0.5-1.5); MAGNESIUM 1.7 mg/dL (1.80-2.40); POTASSIUM 3.8 mmol/L (3.5-5.1)
[2023-06-06] MEDS: INSULIN GLARGINE 100 UNITS/ML 10 ML VIAL SQ SCH ×2 (07:23→20:38)
[2023-06-06] MEDS: PANTOPRAZOLE 40 MG/VIAL IVP SCH ×2 (08:58→20:30)
[2023-06-06] MEDS: BALSAM PERU/CASTOR OIL 60 GM TUBE TP SCH ×2 (09:42→20:40)
[2023-06-06] MEDS: ACETAMINOPHEN 325 MG TAB PO PRN (09:45)
[2023-06-06] MEDS: MORPHINE 4 MG SYG IVP PRN (11:24)
[2023-06-06] MEDS: MEROPENEM 500 MG/100ML CRCL 10-25 IV SCH ×2 (11:37)
[2023-06-06] MEDS ORDERED: HEPARIN 5,000 UNIT VIAL IV STA (16:44)
[2023-06-06] MEDS: METOPROLOL SUCCINATE 25 MG TAB.SR.24H PO SCH ×2 (18:09→20:31)
[2023-06-06] MEDS: ATORVASTATIN 40 MG TABLET PO SCH (20:30)
[2023-06-06] MEDS: GABAPENTIN 100 MG CAPSULE PO SCH (20:31)
[2023-06-06] MEDS: NS IV SCH (23:27)
[2023-06-06] MEDS: FLUCONAZOLE IV SCH (23:27)
[2023-06-07] MEDS: MEROPENEM 500 MG/100ML CRCL 10-25 IV SCH ×6 (00:09→23:08)
[2023-06-07 03:49] VITALS: BP 116/58
[2023-06-07] MEDS: INSULIN HUMULIN R 100 UNIT/ML 3ML SQ SCH ×4 (06:12→19:52)
[2023-06-07] MEDS: INSULIN GLARGINE 100 UNITS/ML 10 ML VIAL SQ SCH ×2 (06:16→19:51)
[2023-06-07 08:00] VITALS: BP 133/71
[2023-06-07] MEDS: METOPROLOL SUCCINATE 25 MG TAB.SR.24H PO SCH ×2 (08:55→19:50)
[2023-06-07] MEDS: OXYBUTYNIN 5 MG TAB.SR.24H PO SCH (08:55)
[2023-06-07] MEDS: MONTELUKAST SODIUM 10 MG TAB PO SCH (08:55)
[2023-06-07] MEDS: PANTOPRAZOLE 40 MG/VIAL IVP SCH ×2 (08:55→19:49)
[2023-06-07] MEDS ORDERED: NON-FORMULARY MEDICATION 1 EACH (Rosuvastatin Calcium 40 MG) PO SCH (09:00)
[2023-06-07] MEDS: ACETAMINOPHEN 325 MG TAB PO PRN ×2 (09:52→18:09)
[2023-06-07] MEDS: BALSAM PERU/CASTOR OIL 60 GM TUBE TP SCH ×2 (09:54→19:52)
[2023-06-07 12:00] VITALS: BP 137/70
[2023-06-07] MEDS: MORPHINE 4 MG SYG IVP PRN ×2 (13:51→19:53)
[2023-06-07 16:00] VITALS: BP 139/71
[2023-06-07] MEDS: ATORVASTATIN 40 MG TABLET PO SCH (19:49)
[2023-06-07] MEDS: GABAPENTIN 100 MG CAPSULE PO SCH (19:50)
[2023-06-07 20:00] VITALS: BP 147/75
[2023-06-07] MEDS: NS IV SCH (23:08)
[2023-06-07] MEDS: FLUCONAZOLE IV SCH (23:08)
[2023-06-08] VITALS (7 sets, daily range): BP systolic 117–153; BP diastolic 66–76
[2023-06-08] MEDS: ACETAMINOPHEN 325 MG TAB PO PRN ×3 (03:46→20:31)
[2023-06-08 04:53] LABS: HEMATOCRIT 29.3 % (36-48); MEAN CORPUSCULAR HGB CONC 30.4 g/dL (32.0-36.0); MEAN CORPUSCULAR VOLUME 82.3 fL (79-99); RED BLOOD CELL COUNT(AUTO) 3.56 MIL/uL (4.00-5.50); WHITE BLOOD COUNT (AUTO) 14.6 K/uL (4.8-10.8)
[2023-06-08 05:07] LABS: MAGNESIUM 1.5 mg/dL (1.80-2.40); POTASSIUM 3.8 mmol/L (3.5-5.1)
[2023-06-08] MEDS: INSULIN HUMULIN R 100 UNIT/ML 3ML SQ SCH ×4 (05:48→20:32)
[2023-06-08] MEDS: INSULIN GLARGINE 100 UNITS/ML 10 ML VIAL SQ SCH ×2 (06:16→20:31)
[2023-06-08] MEDS: PANTOPRAZOLE 40 MG/VIAL IVP SCH ×2 (09:04→20:29)
[2023-06-08] MEDS: OXYBUTYNIN 5 MG TAB.SR.24H PO SCH (09:04)
[2023-06-08] MEDS: MONTELUKAST SODIUM 10 MG TAB PO SCH (09:04)
[2023-06-08] MEDS: METOPROLOL SUCCINATE 25 MG TAB.SR.24H PO SCH ×2 (09:04→20:30)
[2023-06-08] MEDS: BALSAM PERU/CASTOR OIL 60 GM TUBE TP SCH ×2 (09:06→20:37)
[2023-06-08] MEDS: MEROPENEM 500 MG/100ML CRCL 10-25 IV SCH ×4 (12:16→23:09)
[2023-06-08] MEDS: ATORVASTATIN 40 MG TABLET PO SCH (20:29)
[2023-06-08] MEDS: GABAPENTIN 100 MG CAPSULE PO SCH (20:30)
[2023-06-08] MEDS: NS IV SCH (23:08)
[2023-06-08] MEDS: FLUCONAZOLE IV SCH (23:08)
[2023-06-09] VITALS (20 sets, daily range): BP systolic 96–169; BP diastolic 52–79
[2023-06-09] MEDS: INSULIN HUMULIN R 100 UNIT/ML 3ML SQ SCH ×4 (06:13→21:00)
[2023-06-09] MEDS: INSULIN GLARGINE 100 UNITS/ML 10 ML VIAL SQ SCH ×2 (06:13→21:31)
[2023-06-09] MEDS: ACETAMINOPHEN 325 MG TAB PO PRN (06:16)
[2023-06-09] MEDS: MONTELUKAST SODIUM 10 MG TAB PO SCH (08:17)
[2023-06-09] MEDS: PANTOPRAZOLE 40 MG/VIAL IVP SCH ×2 (08:17→21:37)
[2023-06-09] MEDS: METOPROLOL SUCCINATE 25 MG TAB.SR.24H PO SCH ×2 (08:17→21:36)
[2023-06-09] MEDS: OXYBUTYNIN 5 MG TAB.SR.24H PO SCH (08:17)
[2023-06-09] MEDS: BALSAM PERU/CASTOR OIL 60 GM TUBE TP SCH ×2 (08:18→21:37)
[2023-06-09] MEDS: MEROPENEM 500 MG/100ML CRCL 10-25 IV SCH ×4 (12:51→23:56)
[2023-06-09] MEDS ORDERED: HEPARIN 5,000 UNIT VIAL ONE (17:12)
[2023-06-09] MEDS ORDERED: HEPARIN 5,000 UNIT VIAL IRRIG PRN (17:30)
[2023-06-09] MEDS: ATORVASTATIN 40 MG TABLET PO SCH (21:36)
[2023-06-09] MEDS: GABAPENTIN 100 MG CAPSULE PO SCH (21:37)
[2023-06-09] MEDS: FLUCONAZOLE IV SCH (23:01)
[2023-06-09] MEDS: NS IV SCH (23:01)
[2023-06-10] VITALS: BP 140/62
[2023-06-10 03:40] VITALS: BP 136/64
[2023-06-10 04:55] LABS: HEMATOCRIT 27.6 % (36-48); MEAN CORPUSCULAR HEMOGLOBIN 24.6 pg (27.0-33.0); MEAN CORPUSCULAR HGB CONC 30.1 g/dL (32.0-36.0); MEAN CORPUSCULAR VOLUME 81.9 fL (79-99); PLATELET COUNT (AUTO) 246 K/uL (130-400); RED BLOOD CELL COUNT(AUTO) 3.37 MIL/uL (4.00-5.50); RED CELL DISTRIBUTION WIDTH 14.8 % (11.0-15.5)
[2023-06-10 05:07] LABS: CREATININE 1.4 mg/dL (0.5-1.5); MAGNESIUM 1.5 mg/dL (1.80-2.40); POTASSIUM 3.7 mmol/L (3.5-5.1)
[2023-06-10] MEDS: INSULIN HUMULIN R 100 UNIT/ML 3ML SQ SCH ×2 (06:29→11:30)
[2023-06-10] MEDS: INSULIN GLARGINE 100 UNITS/ML 10 ML VIAL SQ SCH (06:30)
[2023-06-10 08:00] VITALS: BP 142/70
[2023-06-10] MEDS: METOPROLOL SUCCINATE 25 MG TAB.SR.24H PO SCH (08:31)
[2023-06-10] MEDS: PANTOPRAZOLE 40 MG/VIAL IVP SCH (08:31)
[2023-06-10] MEDS: OXYBUTYNIN 5 MG TAB.SR.24H PO SCH (08:31)
[2023-06-10] MEDS: MONTELUKAST SODIUM 10 MG TAB PO SCH (08:31)
[2023-06-10] MEDS: BALSAM PERU/CASTOR OIL 60 GM TUBE TP SCH (08:41)
[2023-06-10 12:00] VITALS: BP 143/67
[2023-06-10] MEDS: MEROPENEM 500 MG/100ML CRCL 10-25 IV SCH ×2 (12:00)
== END 2023-06-10 15:00 | DRG 853 ==
LOC: EDH 18:23 → EDHIP 18:24 → 2CH 05-24 21:38 → 2AH 05-27 16:37 → WSH 06-04 14:15 → 3CH 06-06 18:23
PROVIDERS: ADMIT Internal Medicine Infectious Disease; ATTEND Internal Medicine Infectious Disease
PROC: 02HV33Z Insertion of Infusion Device into Superior Vena Cava, Percutaneous Approach (ICD-10-PCS; 2023-05-25)
PROC: B548ZZA Ultrasonography of Superior Vena Cava, Guidance (ICD-10-PCS; 2023-05-25)
PROC: 0FB44ZZ Excision of Gallbladder, Percutaneous Endoscopic Approach (ICD-10-PCS; principal; 2023-06-02 14:15)
PROC: 0F798DZ Dilation of Common Bile Duct with Intraluminal Device, Via Natural or Artificial Opening Endoscopic (ICD-10-PCS; 2023-06-04)
DX: A41.50 Gram-negative sepsis, unspecified (principal); E11.10 Type 2 diabetes mellitus with ketoacidosis without coma; N17.0 Acute kidney failure with tubular necrosis; R65.21 Severe sepsis with septic shock; I21.A1 Myocardial infarction type 2; N18.6 End stage renal disease; M62.82 Rhabdomyolysis; N30.00 Acute cystitis without hematuria; E46 Unspecified protein-calorie malnutrition; E87.1 Hypo-osmolality and hyponatremia; I13.11 Hypertensive heart and chronic kidney disease without heart failure, with stage 5 chronic kidney disease, or end stage renal disease; K80.62 Calculus of gallbladder and bile duct with acute cholecystitis without obstruction; K82.A2 Perforation of gallbladder in cholecystitis; R18.8 Other ascites; Z68.41 Body mass index [BMI] 40.0-44.9, adult; E66.01 Morbid (severe) obesity due to excess calories; B35.1 Tinea unguium; D64.9 Anemia, unspecified; E11.22 Type 2 diabetes mellitus with diabetic chronic kidney disease; E78.00 Pure hypercholesterolemia, unspecified; E78.1 Pure hyperglyceridemia; E86.0 Dehydration; E87.6 Hypokalemia; I25.10 Atherosclerotic heart disease of native coronary artery without angina pectoris; I25.2 Old myocardial infarction; I87.2 Venous insufficiency (chronic) (peripheral); J45.909 Unspecified asthma, uncomplicated; K82.8 Other specified diseases of gallbladder; K82.A1 Gangrene of gallbladder in cholecystitis; L60.2 Onychogryphosis; L89.152 Pressure ulcer of sacral region, stage 2; W18.30XA Fall on same level, unspecified, initial encounter; Y93.89 Activity, other specified; Y92.89 Other specified places as the place of occurrence of the external cause; Y99.8 Other external cause status; Z74.01 Bed confinement status; Z83.3 Family history of diabetes mellitus; Z88.0 Allergy status to penicillin; Z90.49 Acquired absence of other specified parts of digestive tract; Z91.199 Patient's noncompliance with other medical treatment and regimen due to unspecified reason; Z95.5 Presence of coronary angioplasty implant and graft; Z99.2 Dependence on renal dialysis
CPT/HCPCS: 36415; 36600; 43264; 43274; 70450; 71045; 72125; 74176; 74181; 74330; 76770; 78226; 80048; 80053; 80061; 80076; 81001; 82010; 82040; 82248; 82270; 82550; 82803; 82948; 83540; 83550; 83605; 83690; 83735; 83874; 84100; 84132; 84484; 85014; 85018; 85025; 85027; 85610; 85730; 86701; 86704; 86706; 87040; 87088; 87340; 87390; 87635; 87804; 90935; 93005; 93306; 93356; 94660; 97039; 99291; 99292; A4606; A6250; A9537; C1751; C1769; C1773; C2625; C9113; C9803; G0378; J0330; J1100; J1170; J1450; J1610; J1644; J1815; J1885; J1956; J2001; J2185; J2250; J2270; J2370; J2405; J2704; J2710; J3010; J3480; J3490; J7030; J7070; Q9967

== ENCOUNTER → 2024-02-12 | Outpatient (CLI) | payer OTHER ==
[~2024-02-12] MED LIST changes: +AMLO-257 PO; +BENA40TA92 PO; +CARV6.25 PO; +DAPA10TA PO; +GABA-529 PO; -LISI10TA24 PO; +METF-446 PO; +MONT-39 PO; +OXYB5TAB27 PO; +PIOG30TA70 PO; +ROSU40TA21 PO; +SEMA1PEN3 SQ; -TICA90TA PO; +TOLT2TAB20 PO; -amlodipine PO; -benazepril PO; -invokana PO; -metformin; -singulair
== END | disposition home or self-care (01) ==
LOC: RAH 08:34
PROVIDERS: ATTEND Internal Medicine
DX: I50.9 Heart failure, unspecified (principal)
CPT/HCPCS: 71046

== ENCOUNTER → 2024-11-19 | Outpatient (CLI) | payer MEDICAID ==
[~2024-11-19] MED LIST changes: +IOHEXOL-350 50ML VIAL IV ONE; +IOHEXOL-350 75 ML VIAL IV ONE; -ROSU40TA21 PO; +ROSU40TA88 PO; +metoPROLOL tartRATE 1 MG/ML 5ML VIAL IV ONE
--- NOTE | 2024-11-19 13:28 | HMCIMG ---
CT OF THE CHEST WITH CONTRAST- CT Cardiac Angio co-interpretation This is done as part of the CT cardiac angiogram study. The interpretation of the coronary arteries will be done by gold letterer in a separate report. History: over-read Comparison: none CT Dose Index (CTDI): 77.90 mGy Dose Length Product (DLP): 493.40 total mGy PROTOCOL: Examination is done at 2.5 millimeter volumetric acquisition after contrast administration with Isovue 370, 100 cc IV, without complications. Photography is done at 5 millimeter thick intervals for the thorax. The examination begins above the heart and therefore the lung apices are incompletely included. The rest of the left lung is included but the right lung is only included up to its middle third. The periphery of the right lung is not included in the study. FINDINGS: The visualized part of the airway is preserved. The bony and soft tissue structures of the chest wall are unremarkable. The aorta is unremarkable. No mediastinal lymphadenopathy is seen. The lung windows demonstrate no worrisome pulmonary nodules, masses or infiltrates. There is no evidence of pulmonary embolism in the visualized lung segments. The upper abdominal views are unremarkable. Impression: No significant abnormalities identified.
--- NOTE | 2024-11-24 13:13 | CARDIOLOGY ---
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 A dedicated, limited window, coronary imaging protocol was used, with single breath-hold, retrospective ECG gating, and automated arrhythmia rejection. 100 cc of low osmolar contrast agent: Omnipaque 350 was delivered via a 18-gauge IV catheter in the right antecubital fossa, using a power injector and followed by 60 cc of normal saline bolus as a chaser. Collimated images were reformatted at 0.5 mm intervals, and sent to an offline independent workstation for interpretation, using 3D anatomic reconstructions: Curved multiplanar reconstructions, maximum intensity projections, and multiplanar imaging. 20 mg IV metoprolol was administered prior to scanning. 0.8 mg SL nitroglycerin was given. Due to motion artifact, not able to interpret study. Consider different testing modality. Jaclyn Castro MD Cardiovascular Disease [place] [facility] JACLYN CASTRO MD Nov 24, 2024 13:13
== END | disposition home or self-care (01) ==
LOC: RAH 07:56
PROVIDERS: ATTEND Internal Medicine Cardiovascular Disease
DX: I21.4 Non-ST elevation (NSTEMI) myocardial infarction (principal); I25.10 Atherosclerotic heart disease of native coronary artery without angina pectoris; R07.9 Chest pain, unspecified
CPT/HCPCS: 75574; J3490 ×2; Q9967 ×2